=== PATIENT | male | born 1975 | race Two or more races ===

== ENCOUNTER 2022-06-06 21:00 | Emergency (ER) | payer BC, OTHER ==
[2022-06-06] MEDS ORDERED: Ketorolac 30 MG/ML SDV IVPUSH ONE (21:15)
[2022-06-06] MEDS ORDERED: methylPREDNISolone Sodium Succinate 125 MG/2 ML SDV IV ONE (21:55)
[2022-06-06] MEDS ORDERED: hydrOXYzine HCl 50 MG/ML SDV IM ONE (22:05)
== END 2022-06-06 22:35 | disposition home or self-care (01) ==
LOC: KA.ED 21:00
DX: M62.830 Muscle spasm of back (principal)
CPT/HCPCS: 96372; 96374; 96375; 99283; J1885; J2930; J3410